=== PATIENT | female | born 1970 | race Caucasian/White ===

== ENCOUNTER 2017-06-19 14:42 | Emergency (ER) | payer OTHER ==
--- NOTE | 2017-06-19 14:51 | PDOC ---
History of Present Illness - General History Source: Patient Exam Limitations: No Limitations - History of Present Illness Initial Comments: 06/19/17 15:30 The patient is 46 year old female with a significant past medical of PFO closure in 2013, stroke in 2013, and herniated disc in the back (10 years ago), who presents to the ED with right sided back spasms for three days. Patient states she has been taking ibuprofen and percocet with little to no alleviation. Patient states she has history of back issues 10 years ago, but denies back issues this severe. Patient denies recent trauma. Patient denies fever, chills, nausea, vomiting, diarrhea, hematochezia. Patient denies dysuria, frequency, hematuria. <Rachid Youssef - Last Filed: 06/19/17 15:30> - General History Source: Patient Exam Limitations: No Limitations <Lauren Garrison - Last Filed: 06/19/17 17:03> - General Chief Complaint: Pain Stated Complaint: BACK PAIN Time Seen by Provider: 06/19/17 14:49 Past History <Rachid Youssef - Last Filed: 06/19/17 15:30> <Lauren Garrison - Last Filed: 06/19/17 17:03> - Past Medical History Allergies/Adverse Reactions: Allergies Allergy/AdvReac Type Severity Reaction Status Date / Time Penicillins Allergy Severe Difficulty Verified 06/19/17 15:14 Breathing Home Medications: Ambulatory Orders Lidocaine 5% Patch [Lidoderm Patch -] 1 patch TP DAILY PRN #30 patch 06/19/17 Methocarbamol [Robaxin -] 500 mg PO TID PRN #30 tablet 06/19/17 Naproxen [Naprosyn -] 500 mg PO BID PRN #14 tablet 06/19/17 Review of Systems - Review of Systems Able to Perform ROS?: Yes Comments:: 06/19/17 15:30 GENERAL/CONSTITUTIONAL: No: fever, chills, weakness, loss of appetite. HEAD, EYES, EARS, NOSE AND THROAT: No: change in vision, ear pain, discharge, sore throat, throat swelling. CARDIOVASCULAR: No: chest pain, lightheadedness, palpitations, syncope RESPIRATORY: No: cough, shortness of breath, wheezing, hemoptysis, stridor. GASTROINTESTINAL: No: nausea, vomiting, abdominal cramping, diarrhea, rectal bleeding, constipation. GENITOURINARY: No: dysuria, hematuria, frequency, urgency, flank pain. MUSCULOSKELETAL: + back pain. No: neck pain, joint pain, muscle swelling or pain SKIN AND BREASTS: No: lesions, pallor, rash or easy bruising. NEUROLOGIC: No: headache, vertigo, paresthesias, weakness ENDOCRINE: No: unexplained weight gain or loss HEMATOLOGIC/LYMPHATIC: No: anemia, easy bleeding, swelling nodes <Rachid Youssef - Last Filed: 06/19/17 15:30> *Physical Exam - Vital Signs Last Vital Signs Temp Pulse Resp BP Pulse Ox 98.2 F 86 20 152/91 100 06/19/17 14:43 06/19/17 14:43 06/19/17 14:43 06/19/17 14:43 06/19/17 14:43 - Physical Exam Comments: 06/19/17 15:31 GENERAL: The patient is in no acute distress. HEAD: Normal with no signs of trauma. EYES: PERRLA, EOMI, sclera anicteric, conjunctiva clear. ENT: Ears normal, nares patent, oropharynx clear without exudates. Moist mucous membranes. NECK: Normal range of motion, supple without lymphadenopathy, JVD, or masses. LUNGS: Breath sounds equal, clear to auscultation bilaterally. No wheezes, and no crackles. HEART:Regular rate and rhythm, normal S1 and S2 without murmur, rub or gallop. ABDOMEN: Soft, nontender, normoactive bowel sounds. No guarding, no rebound. BACK: Right paraspinal tenderness to palpation . EXTREMITIES: Normal range of motion, no edema. No clubbing or cyanosis. No erythema, or tenderness. NEUROLOGICAL: Motor is 5/5 in strength. All extremities are normal. Sensation is intact Cranial nerves II through XII grossly intact. Normal speech. No focal neurological deficits. MUSCULOSKELETAL: Back non-tender to palpation, no CVA tenderness SKIN: Warm, Dry, normal turgor, no rashes or lesions noted. <Rachid Youssef - Last Filed: 06/19/17 15:30> ED Treatment Course - Medications Given in the ED: ED Medications Discontinued Medications Generic Name Dose Route Start Last Admin Trade Name Freq PRN Reason Stop Dose Admin Cyclobenzaprine HCl 10 mg 06/19/17 15:25 06/19/17 15:24 Flexeril - PO 06/19/17 15:26 10 mg ONCE ONE Administration Ketorolac Tromethamine 30 mg 06/19/17 15:01 06/19/17 15:24 Toradol Injection - IM 06/19/17 15:02 30 mg ONCE ONE Administration <Rachid Youssef - Last Filed: 06/19/17 15:30> Medical Decision Making - Medical Decision Making 06/19/17 14:51 A portion of this note was documented by scribe services under my direction. I have reviewed the details of the note, within reason, and agree with the documentation with the following case summary and management plan written by me. Nursing documentation reviewed and incorporated into medical decision making 06/19/17 16:52 THis is a 46 yp F presenting to the ER with a complaint of right back pain Pt states that she has had chronic back pain Starting three days ago, she began to have back pain She took motrin and the pain subsided enough to allow her to work Yesterday in the morning, pt states her pain significantly worsened No direct trauma No fevers or chills No IV drug use Pt sates that she has back spasms that are severe No bowel or bladder incontinence No numbness or tingling in the extremities No weakness Pain with movement of any sort NEURO: Mental status: The patient is oriented x3. Cranial nerves: Cranial nerves II through XII are intact Motor: The upper extremities are 5 over 5 in all muscle groups. The lower extremities are 5 over 5 in all muscle groups. Sensation: Sensation is intact to light touch throughout. Gait: Normal. Heel and toe walking are normal. Tandem gait is normal Pt given Toradol, Flexeril Pt improved but still has pain with movement Pt given Valium . <Lauren Garrison - Last Filed: 06/19/17 17:03> *DC/Admit/Observation/Transfer - Attestations Scribe Attestion: 06/19/17 15:32 Documentation prepared by Rachid Youssef, acting as medical customer service representative for Lauren Garrison MD. <Rachid Youssef - Last Filed: 06/19/17 15:30> - Discharge Dispostion Admit: No <Lauren Garrison - Last Filed: 06/19/17 17:03> Diagnosis at time of Disposition: Spasm of back muscles - Discharge Dispostion Disposition: HOME Condition at time of disposition: Stable - Prescriptions Prescriptions: Lidocaine 5% Patch [Lidoderm Patch -] 1 patch TP DAILY PRN #30 patch PRN Reason: Pain Naproxen [Naprosyn -] 500 mg PO BID PRN #14 tablet PRN Reason: Pain Methocarbamol [Robaxin -] 500 mg PO TID PRN #30 tablet PRN Reason: Lower Back Pain - Referrals Referrals: Tamir Del iRo MD [Staff Physician] - - Patient Instructions Printed Discharge Instructions: DI for Back Spasm Additional Instructions: Meagan Malcom Thank you for coming in to the ER today Please take medications as prescribed Please follow up with your Primary care physician and Orthopedist Please return to the ER for new symptoms, any other concerns or complaints
[2017-06-19 14:56] VITALS: BMI 21.4
[2017-06-19] MEDS ORDERED: KETOROLAC TROMETHAMINE 30 MG/1 ML VIAL IM ONE (15:01)
[2017-06-19] MEDS ORDERED: CYCLOBENZAPRINE HCL 10 MG TABLET (FP) ONE (15:18)
[2017-06-19] MEDS ORDERED: CYCLOBENZAPRINE HCL 10 MG TABLET (FP) PO ONE (15:25)
[2017-06-19] MEDS ORDERED: diazePAM 5 MG TABLET PO ONE (16:11)
[2017-06-19] MEDS ORDERED: diazePAM 5 MG TABLET ONE (16:13)
[2017-06-19 16:54] VITALS: BP 121/78; PULSE 68; TEMP 98.3
[2017-06-20] MEDS ORDERED: CYCLOBENZAPRINE HCL 5 MG TABLET PO ONE ×2 (15:01→15:18)
== END 2017-06-19 17:34 | disposition home or self-care (01) ==
LOC: FER 14:42
PROC: 3E0233Z Introduction of Anti-inflammatory into Muscle, Percutaneous Approach (ICD-10-PCS; principal; 2017-06-19)
DX: M62.830 Muscle spasm of back (principal); Z86.73 Personal history of transient ischemic attack (TIA), and cerebral infarction without residual deficits; Z88.0 Allergy status to penicillin
CPT/HCPCS: 99282-25